=== PATIENT | male | born 1960 | race Caucasian/White ===

== ENCOUNTER → 2018-01-25 15:35 | Outpatient (CLI) | payer OTHER, SELFPAY ==
[2018-01-25 17:13] LABS: Anion Gap 8.9 mmol/L (3-11); BUN 21 mg/dL (7-18); CO2 29.1 mmol/L (21.0-32.0); CREATININE 1.05 mg/dL (0.70-1.30); Calcium 9.1 mg/dL (8.5-10.1); Chloride 104 mmol/L (98-107); Glucose 103 mg/dL (70-100); Potassium 3.8 mmol/L (3.5-5.1); Sodium 142 mmol/L (136-145)
== END ==
PROVIDERS: PCP Nurse Practitioner Family; Visit Provider Nurse Practitioner Family
DX: I10 Essential (primary) hypertension (principal)
CPT/HCPCS: 36415; 80048

== ENCOUNTER 2019-01-27 07:10 | Outpatient (CLI) | payer OTHER, SELFPAY ==
[2019-01-27 08:23] LABS: Anion Gap 8.7 mmol/L (3-11); BUN 18 mg/dL (7-18); CO2 29.3 mmol/L (21.0-32.0); CREATININE 1.09 mg/dL (0.70-1.30); Calculated LDL 104 mg/dL; Chloride 102 mmol/L (98-107); Cholesterol 178 mg/dL (50-200); Glucose 112 mg/dL (70-100); HDL Cholesterol 45 mg/dL (40-60); Potassium 4.3 mmol/L (3.5-5.1); Sodium 140 mmol/L (136-145); Triglyceride 146 mg/dL (30-150)
[2019-01-27 08:27] LABS: Hemoglobin A1C 5.8 % (4.5-6.2)
== END 2019-01-27 07:30 ==
PROVIDERS: PCP Nurse Practitioner Family; Visit Provider Nurse Practitioner Family
DX: I10 Essential (primary) hypertension (principal); E78.5 Hyperlipidemia, unspecified; R73.01 Impaired fasting glucose
CPT/HCPCS: 36415; 80048; 80061; 83721; 83036

== ENCOUNTER 2019-08-13 16:03 | Outpatient (CLI) | payer OTHER, SELFPAY ==
--- NOTE | 2019-08-13 15:32 | DI.RAD_ITS ---
EXAM: XR HEEL RT OS CALCIS CLINICAL HISTORY: Blunt trauma to right heel, pain rt heel/foot, M79.671,? FX TECHNIQUE: 2D digital imaging was performed. COMPARISON: No exams were available for comparison FINDINGS: BONES: No acute fracture is present. No bony destructive lesion is seen. JOINTS: No dislocation present. SOFT TISSUE: Normal. IMPRESSION: Unremarkable radiographs of the right calcaneus. DATA REPOSITORY: RADIATION DOSE DELIVERED:
== END 2019-08-13 16:23 ==
PROVIDERS: PCP Nurse Practitioner Family; Visit Provider Nurse Practitioner Family
DX: M79.671 Pain in right foot (principal); S90.31XA Contusion of right foot, initial encounter
CPT/HCPCS: 73650

== ENCOUNTER 2020-01-07 11:34 | Emergency (ER) | payer OTHER, SELFPAY ==
[2020-01-07] VITALS (19 sets, daily range): BP systolic 110–134; BP diastolic 66–79; PULSE 63–77; RESP 16–27; TEMP 36.6; O2SAT 94–98
[2020-01-07] MEDS: Normal Saline 1,000 ML 1000 ML IV (11:35)
[2020-01-07] MEDS: methylPREDNISolone SUCC 125 MG VIAL IVP (11:40)
[2020-01-07] MEDS: diphenhydrAMINE 50 MG/ML VIAL IVP (11:40)
[2020-01-07] MEDS: FAMOTIDINE 20 MG/50 ML BAG 200 MG IVPB (11:45)
[2020-01-07] MEDS: Normal Saline 1,000 ML 125 ML IV (12:26)
--- NOTE | 2020-01-07 12:48 | W.ED.GENAD ---
Discharge Plan Disposition Patient Disposition: HOME Condition: Stable Discharge Details Chief Complaint: Allergic Clinical Impression: Allergic reaction to bee sting Primary Care Provider: Cathy Larson ED Provider: Haja Bush Home Meds and New Rx's Prescriptions: New prednisone 20 mg tablet 60 mg PO DAILY 5 Days Qty: 15 RF: 0 epinephrine 0.3 mg/0.3 mL auto-injector 0.3 mg IM ONCE Qty: 1 RF: 0 Continued multivitamin 1 EACH tablet 1 ea PO DAILY RF: 0 aspirin [Ecotrin Low Strength] 81 MG tablet,delayed release (DR/EC) 81 mg PO DAILY RF: 0 Vitamin C 100 MG tablet 500 mg PO DAILY RF: 0 acetaminophen [Tylenol Extra Strength] 500 MG tablet 1,000 mg PO DAILY PRNRF: 0 sildenafil [Viagra] 50 MG tablet 50 mg PO DAILY PRNQty: 10 RF: 0 ranitidine HCl 150 mg tablet 150 mg PO BID Qty: 180 RF: 3 lisinopril 40 mg tablet 40 mg PO DAILY Qty: 90 RF: 3 hydrochlorothiazide 12.5 mg tablet 12.5 mg PO DAILY Qty: 90 RF: 3 propranolol 40 mg tablet 40 mg PO BID Qty: 180 RF: 3 Discharge Instructions Instructions: Insect Bite or Sting (ED), General Allergic Reaction (ED) Additional Instructions: At this time you have responded nicely to the medications provided in the ER. Prednisone as directed. [id number] Benadryl and Pepcid as directed for the next 5 days. I have given you a prescription for EpiPen and specific directions as to when to use the medication. As we discussed if you are required to use it I still recommend going to the nearest ER for evaluation. Please watch for new or worsening symptoms and return to the ER for any concerns. I would also recommend reaching out to your primary care provider later today or tomorrow for prompt outpatient reevaluation Discharge Data Discharge Date/Time-TO BE ENTERED AT DEPARTURE: 01/07/20 14:35 Medical Decision Making 59-year-old gentleman presenting at 30 minutes after a bee sting to his right ankle. He has body wide hives, itching, mild lip swelling and tingling. Also describes a chest tightness. I immediately saw the patient in room 1 and discussed the case with Dr. Anna. We will monitor him extremely closely but at this point there are no clear signs of angioedema or airway compromise. IV access established, given IV fluid, Benadryl, Pepcid, Solu-Medrol. Would like to attempt to avoid epinephrine if at all possible. Patient was observed in the ER for a total of over 3 hours. He was evaluated serially. The lip tingling and swelling sensation that he noted upon arrival had resolved completely. No longer having any chest tightness. The symptoms resolved within the first half an hour of his ER visit. Over the next 2-1/2 hours the hives resolve slowly. He was able to ambulate steadily without difficulty. He was able to use his phone without difficulty and tolerate p.o. belinda cindy. He is completely asymptomatic at this time. We discussed treatment plan disposition. Will provide a prescription burst dose of steroids and a prescription for an EpiPen with explicit instructions how and when to use the EpiPen. He will use [id number] Benadryl and Pepcid over the next 5 days as well. Patient will reach out to his primary care provider in the next 24 hours for prompt outpatient reevaluation. Upon discharge he is asymptomatic, neurologically intact. He has no additional questions or concerns and is comfortable discharge. During his evaluation and observation there were no signs of decompensation. Medical Records Medical records reviewed: Yes I reviewed the patient's medical records. HPI General Mode of arrival: ambulatory. Date/Time Provider Initiated Documentation: 01/07/20 11:37. Limitations to Documentation: no limitations. Information obtained by: patient. HPI Narrative: 59-year-old gentleman with history of hypertension, migraines, idiopathic peripheral neuropathy, GERD, presents to the ER having sustained a single bee sting to his lateral right ankle just prior to arrival while at work. He reports a body wide itchy rash and tingling in his lips. He did not take any medications prior to arrival and came directly to the ER. He has never had any reaction like this before to a bee sting. He denies any tongue swelling. No difficulty speaking, breathing, managing his own secretions. He does report that his skin feels tight where the rash is present and initially had a chest heaviness but denies any chest pain or shortness of breath. Related Data Home Medications Medication Instructions Recorded Confirmed Vitamin C 500 mg PO DAILY 09/27/12 01/07/20 aspirin [Ecotrin Low Strength] 81 mg PO DAILY tab-cap 09/27/12 01/07/20 multivitamin 1 ea PO DAILY 09/27/12 01/07/20 acetaminophen [Tylenol Extra 1,000 mg PO DAILY PRN tab-cap 11/01/16 01/07/20 Strength] sildenafil [Viagra] 50 mg PO DAILY PRN #10 tab-cap 08/03/17 01/07/20 ranitidine HCl 150 mg tablet 150 mg PO BID #180 tab-cap 11/14/18 01/07/20 lisinopril 40 mg tablet 40 mg PO DAILY #90 tab-cap 05/21/19 01/07/20 hydrochlorothiazide 12.5 mg tablet 12.5 mg PO DAILY #90 tab-cap 10/16/19 01/07/20 propranolol 40 mg tablet 40 mg PO BID #180 tab-cap 10/16/19 01/07/20 epinephrine 0.3 mg IM ONCE #1 each 01/07/20 prednisone 60 mg PO DAILY 5 Days #15 tab 01/07/20 Previous Rx's Medication Instructions Recorded ranitidine HCl 150 mg tablet 150 mg PO BID #180 tab-cap 11/14/18 lisinopril 40 mg tablet 40 mg PO DAILY #90 tab-cap 05/21/19 hydrochlorothiazide 12.5 mg tablet 12.5 mg PO DAILY #90 tab-cap 10/16/19 propranolol 40 mg tablet 40 mg PO BID #180 tab-cap 10/16/19 epinephrine 0.3 mg IM ONCE #1 each 01/07/20 prednisone 60 mg PO DAILY 5 Days #15 tab 01/07/20 Allergies Allergy/AdvReac Type Severity Reaction Status Date / Time bee venom protein (honey bee) Allergy Anaphylaxsi Unverified 01/07/20 11:42 s General Stated Complaint: Allergic MEREDITH: 2 Review of Systems Constitutional Constitutional: Denies headache(s) and Denies weakness Eyes Eyes: Denies itchy eyes ENT Ears, Nose, Mouth, and Throat: Denies headache(s), Reports lip swelling, Denies throat swelling and Denies tongue swelling Cardiovascular Cardiovascular: Denies chest pain and Denies dyspnea Respiratory Respiratory: Denies cough, Denies dyspnea and Denies wheezing Gastrointestinal Gastrointestinal: Denies abdominal pain, Denies nausea and Denies vomiting Musculoskeletal Musculoskeletal: Denies numbness and Reports tingling Integumentary/Breasts Skin/Breast: Reports rash Neurologic Neurologic: Denies headache(s), Denies numbness, Reports tingling and Denies weakness Allergic/Immunologic Allergic/Immunologic: Reports urticaria, Denies itchy eyes, Reports lip swelling, Denies throat swelling, Denies tongue swelling and Denies wheezing [facility] Medical History Asymptomatic varicose veins of unspecified lower extremity (Chronic 10/10/11) Benign neoplasm of colon, unspecified (Inactive 10/10/11) colonoscopy 08/22/13 tubular adenoma Gastroesophageal reflux disease with esophagitis (Chronic 12/22/15) 11/17/15 EGD showing moderate esophagitis with evidence of reflux including Schatzki ring, a small hiatal hernia, & moderate gastritis Hyperlipidemia (Chronic 10/10/11) 01/2019 labs: 10-year ASCVD risk = ~9.4% --> Idiopathic peripheral neuropathy (Chronic 11/20/12) neg w/u IFG (impaired fasting glucose) (Chronic) Male erectile dysfunction, unspecified (Chronic 08/03/17) Migraine (Chronic 10/10/11) Unspecified essential hypertension (Chronic 11/06/12) FRS 15% Surgical History Colonoscopy - IV Sedation (Resolved 12/22/16) Elbow surgery, right (Resolved ~2015) Repair of umbilical hernia (Resolved) Family History Mother Essential hypertension Hyperlipidemia Father , Ross's lung No problems noted. 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 Water heater temp set <120 deg: Yes Working smoke detector in home: Yes Fire extinguisher in home: Yes Carbon monox detector in home: Yes Firearms in home: Yes Firearms unloaded and locked: Yes Do you feel safe at home: Yes Do you feel safe in your relationship?: Yes Exam Const General: cooperative, healthy appearing, comfortable, no acute distress and anxious Orientation: alert and awake [facility] Head: normal to inspection, normocephalic and atraumatic General nose exam: external nose normal Face and sinus: normal facial exam Mouth: moist mucous membranes and lip abnormal (Minimal swelling) Throat: posterior oropharynx normal and uvula midline Eyes Conjunctivae: conjunctivae normal Sclera: sclerae normal Neck Neck: normal visual inspection, full ROM, no meningeal signs, trachea midline, supple and nontender Resp Effort & Inspection: normal respiratory effort and able to speak in complete sentences Auscultation: clear to auscultation bilaterally Cardio Rate: regular rate Rhythm: regular rhythm GI Palpation: soft and nontender Back/Spine/Pelvis Back: No back tenderness Skin Rashes: rashes noted hives diffuse full body Neuro General: patient alert, patient awake, patient oriented x3, moves all extremities and no focal motor deficits Cranial Nerves: CN's II-XI intact bilaterally Cognition: normal cognition Speech: speech normal Gait: normal gait Motor: muscle tone normal throughout and strength 5/5 throughout Sensory Exam: no sensory deficits noted Extrem General: full ROM, capillary refill normal, no pedal edema and no calf tenderness Left lower extremity: ankle (Lateral aspect with a puncture wound, no intact stinger) Psych Appearance: grossly normal Mental Status: mental status grossly normal Course Vital Signs Vital signs: Vital Signs Temperature 36.6 C 01/07/20 11:37 Pulse 71 01/07/20 11:37 Respiratory Rate 27 H 01/07/20 11:37 Blood Pressure 110/66 01/07/20 11:37 Pulse Oximetry 94 L 01/07/20 11:37 Temperature 36.6 C 01/07/20 11:37 Temperature Source Temporal Artery Scan 01/07/20 11:37 Pulse 68 01/07/20 12:16 Pulse 67 01/07/20 12:20 Respiratory Rate 24 01/07/20 12:20 Respiratory Effort 01/07/20 11:44 Respiratory Pattern Normal 01/07/20 11:44 Blood Pressure 134/79 07/29/20 12:16 Blood Pressure Mean 91 01/07/20 12:16 Blood Pressure Position Supine 01/07/20 11:37 Pulse Oximetry 98 01/07/20 12:20 Oxygen Delivery Method Room Air 01/07/20 11:37 Oxygen Flow Rate 0 01/07/20 11:37 Pain Level 3 01/07/20 11:37
--- NOTE | 2020-01-07 13:22 | NUR.NOTE ---
Nursing Note: pt dozing off , his hives are gone from his core and extrremeties.
== END 2020-01-07 14:35 | disposition home or self-care (01) ==
PROVIDERS: Emergency Provider Physician Assistant; PCP Nurse Practitioner Family
DX: T63.441A Toxic effect of venom of bees, accidental (unintentional), initial encounter (principal); L50.0 Allergic urticaria; L29.9 Pruritus, unspecified; R20.2 Paresthesia of skin; R07.89 Other chest pain; I10 Essential (primary) hypertension
CPT/HCPCS: 96361; 96365; 96375; 99284; J1200; J2930

== ENCOUNTER 2020-07-19 03:27 | Outpatient (CLI) | payer OTHER, SELFPAY ==
[2020-07-19 08:31] LABS: HCT 47.6 % (40.0-50.0); MCH 30.4 pg (27.0-33.0); MCHC 33.6 % (32.0-36.0); MCV 90.3 fL (80-95); MPV 8.9 fL (8.0-11.0); Platelet Count 335 10^3/uL (130-400); RBC 5.27 10^6/uL (4.36-5.78); RDW 12.4 % (11.8-14.1); RDW-SD 40.9 fL
[2020-07-19 09:13] LABS: Hemoglobin A1C 5.5 % (<5.7)
[2020-07-19 09:33] LABS: ALT 26 U/L (16-63); AST 17 U/L (15-37); Albumin 4.3 g/dL (3.4-5.0); Alkaline Phosphatase 66 U/L (46-116); Anion Gap 7.8 mmol/L (3-11); BUN 24 mg/dL (7-18); Bilirubin, Total 0.5 mg/dL (0.2-1.0); CO2 30.2 mmol/L (21.0-32.0); CREATININE 1.2 mg/dL (0.70-1.30); Calcium 9.2 mg/dL (8.5-10.1); Calculated LDL 106 mg/dL (<100); Chloride 100 mmol/L (98-107); Cholesterol 175 mg/dL (<200); Glucose 100 mg/dL (74-106); HDL Cholesterol 46 mg/dL (40-60); Potassium 4.7 mmol/L (3.5-5.1); Sodium 138 mmol/L (136-145); Total Protein 7.7 g/dL (6.4-8.2); Triglyceride 119 mg/dL (<150)
== END 2020-07-19 03:28 | disposition home or self-care (01) ==
LOC: LBO 03:27
PROVIDERS: PCP Nurse Practitioner Family; Visit Provider Nurse Practitioner Family
DX: I10 Essential (primary) hypertension (principal); E78.5 Hyperlipidemia, unspecified; R73.01 Impaired fasting glucose; K21.9 Gastro-esophageal reflux disease without esophagitis; Z51.81 Encounter for therapeutic drug level monitoring
CPT/HCPCS: 36415; 80053; 80061; 85027; 83036

== ENCOUNTER 2021-07-06 01:24 | Outpatient (CLI) | payer OTHER, SELFPAY ==
[2021-07-06 07:25] LABS: Abs Immature Grans 0.03 10^3/uL (0.0-0.06); Absolute Basophil Count 0.07 10^3/uL (0.0-0.2); Absolute Eosinophil Count 0.43 10^3/uL (0.0-0.7); Absolute Lymphocyte Count 2.19 10^3/uL (1.2-3.4); Absolute Monocyte Count 0.76 10^3/uL (0.1-0.8); Absolute Neutrophil Count 4.77 10^3/uL (1.2-6.7); Basophils % 0.8; Eosinophils % 5.2; HCT 47.4 % (40.0-50.0); HGB 15.6 g/dL (13.5-17.5); Immature Grans % 0.4; Lymphocytes % 26.5; MCH 30.2 pg (27.0-33.0); MCHC 32.9 % (32.0-36.0); MCV 91.9 fL (80-95); MPV 8.8 fL (8.0-11.0); Monocytes % 9.2; Neutrophils % 57.9; Nucleated RBC 0 %; Platelet Count 284 10^3/uL (130-400); RBC 5.16 10^6/uL (4.36-5.78); RDW 12.2 % (11.8-14.1); RDW-SD 41.9 fL; WBC 8.25 10^3/uL (4.4-10.8)
[2021-07-06 07:51] LABS: Hemoglobin A1C 5.5 % (<5.7)
[2021-07-06 08:53] LABS: Anion Gap 7.8 mmol/L (3-11); BUN 22 mg/dL (7-18); CO2 31.2 mmol/L (21.0-32.0); CREATININE 1.1 mg/dL (0.70-1.30); Calcium 8.9 mg/dL (8.5-10.1); Calculated LDL 117 mg/dL (<100); Chloride 101 mmol/L (98-107); Cholesterol 186 mg/dL (<200); Glucose 107 mg/dL (74-106); HDL Cholesterol 48 mg/dL (40-60); Potassium 4.6 mmol/L (3.5-5.1); Sodium 140 mmol/L (136-145); Triglyceride 106 mg/dL (<150)
== END 2021-07-06 01:25 | disposition home or self-care (01) ==
LOC: LBO 01:24
PROVIDERS: PCP Nurse Practitioner Family; Visit Provider Nurse Practitioner Family
DX: I10 Essential (primary) hypertension (principal); E78.5 Hyperlipidemia, unspecified; R73.01 Impaired fasting glucose; Z51.81 Encounter for therapeutic drug level monitoring
CPT/HCPCS: 36415; 80048; 80061; 83036; 85025

== ENCOUNTER 2021-08-12 04:01 | Outpatient (CLI) | payer OTHER, SELFPAY ==
[2021-08-12 22:00] LABS: CRP, High Sensitivity 0.47 mg/L (See Note)
== END 2021-08-12 04:02 | disposition home or self-care (01) ==
LOC: LBO 04:01
PROVIDERS: PCP Nurse Practitioner Family; Visit Provider Nurse Practitioner Family
DX: E78.5 Hyperlipidemia, unspecified (principal); Z91.89 Other specified personal risk factors, not elsewhere classified
CPT/HCPCS: 36415; 86141

== ENCOUNTER 2022-07-05 02:09 | Outpatient (CLI) | payer OTHER, SELFPAY ==
[2022-07-05 07:42] LABS: Hemoglobin A1C 5.7 % (<5.7)
[2022-07-05 07:45] LABS: Anion Gap 5.3 mmol/L (3-11); BUN 20 mg/dL (7-18); CO2 32.7 mmol/L (21.0-32.0); CREATININE 1.2 mg/dL (0.70-1.30); Calcium 9.2 mg/dL (8.5-10.1); Calculated LDL 112 mg/dL (<100); Chloride 102 mmol/L (98-107); Cholesterol 184 mg/dL (<200); Estimated GFR 68.38 (mL/min/1.73m2); Glucose 115 mg/dL (74-106); HDL Cholesterol 48 mg/dL (40-60); Potassium 3.8 mmol/L (3.5-5.1); Sodium 140 mmol/L (136-145); Triglyceride 122 mg/dL (<150)
== END 2022-07-05 02:10 | disposition home or self-care (01) ==
LOC: LBO 02:09
PROVIDERS: PCP Nurse Practitioner Family; Referring Provider Nurse Practitioner Adult Health; Visit Provider Nurse Practitioner Adult Health
DX: I10 Essential (primary) hypertension (principal); E78.5 Hyperlipidemia, unspecified; R73.01 Impaired fasting glucose
CPT/HCPCS: 36415; 80048; 80061; 83036

== ENCOUNTER 2022-08-10 16:00 | Emergency (ER) | payer OTHER, SELFPAY ==
--- NOTE | 2022-08-10 16:15 | DI.RAD_ITS ---
Exam(s) XR FOREARM LT EXAM: XR FOREARM LT CLINICAL HISTORY: broke glass while cleaning, laceration,r/o fb. TECHNIQUE: 2D digital imaging was performed of the left forearm. Two views were obtained. AP and l ateral views were obtained. COMPARISON: No exams were available for comparison FINDINGS: BONES: No acute fracture is present. No bony destructive lesion is seen. Visualized portion of elbow and wrist joints are unremarkable. SOFT TISSUE: There is a 3-4 mm triangular foreign body in the soft tissues in the anterior and medial distal forearm. IMPRESSION: 3-4 mm triangular foreign body in the soft tissues in the anterior medial distal forearm. DATA REPOSITORY: RADIATION DOSE DELIVERED:
[2022-08-10 16:22] VITALS: BP 140/81; PULSE 69; RESP 18; TEMP 36.5; O2SAT 96
--- NOTE | 2022-08-10 17:32 | ED.GENADUL_ITS ---
Discharge Plan Disposition Patient Disposition: Home Discharge Details Clinical Impression: Laceration with foreign body of left forearm, initial encounter, Finger laceration Primary Care Provider: Cathy Larson ED Provider: Cherie Estrada Home Meds and New Rx's Prescriptions: New cephalexin 500 mg capsule 500 mg PO Q6H 7 Days Qty: 28 0RF Continued epinephrine [EpiPen] 0.3 mg/0.3 mL auto-injector 0.3 mg IM ONCE Qty: 1 0RF Rx Instructions: Seek immediate medical attention following administration hydrochlorothiazide 12.5 mg tablet 12.5 mg PO DAILY Qty: 90 3RF lisinopril 40 mg tablet 40 mg PO DAILY Qty: 90 3RF propranolol 40 mg tablet 40 mg PO BID Qty: 180 3RF multivitamin 1 EACH tablet 1 ea PO DAILY aspirin [Ecotrin Low Strength] 81 MG tablet,delayed release (DR/EC) 81 mg PO Rx Instructions: Every other day Vitamin C 100 MG tablet 500 mg PO DAILY Rx Instructions: CHEWABLE sildenafil [Viagra] 50 MG tablet 50 mg PO DAILY PRNQty: 10 Rx Instructions: Take 50 mg once daily as needed 1 hour before sexual activity Discharge Instructions Instructions: Laceration (ED), Finger Laceration (ED) Additional Instructions: Keep wounds clean and dry Follow-up with orthopedics, this wound will likely heal nicely and the glass may or may not work itself out of the wound, it is perfectly safe for the foreign body to remain in the cot and likely not harm you There is a small risk of infection, placing you on antibiotics for several days Continue to wash it and keep it clean I also placed a little glue in your other wound to stop the bleeding, this Dermabond will come off on its own Keep all wounds clean and dry, monitor for signs of infection Refrain from submerging your arm in water Referrals: Royal Alvarez MD [ [facility] STAFF PHYSICIAN] - Discharge Data Discharge Date/Time-TO BE ENTERED AT DEPARTURE: 08/10/22 17:47 HPI General Date/Time Provider Initiated Documentation: 08/10/22 16:10 . HPI Narrative: This 62-year-old gentleman presents with injury to his left forearm and finger. He states that he was washing a cake carrier when it broke and he feels that there is a piece of glass in his arm. His tetanus is up-to-date and he denies any additional injuries. Related Data Home Medications Medication Instructions Recorded Confirmed ascorbic acid (vitamin C) 100 mg 500 mg PO DAILY 09/27/12 08/10/22 tablet (Vitamin C) aspirin 81 mg tablet,delayed 81 mg PO 09/27/12 07/12/22 release (Ecotrin Low Strength) multivitamin 1 ea PO DAILY 09/27/12 08/10/22 sildenafil 50 mg tablet (Viagra) 50 mg PO DAILY PRN #10 tab-caps 08/03/17 07/12/22 epinephrine 0.3 mg/0.3 mL 0.3 mg (0.3 mL) IM ONCE #1 ea 01/09/22 08/10/22 injection, auto-injector (EpiPen) hydrochlorothiazide 12.5 mg tablet 12.5 mg PO DAILY #90 tabs 07/12/22 08/10/22 lisinopril 40 mg tablet 40 mg PO DAILY #90 tab-caps 07/12/22 08/10/22 propranolol 40 mg tablet 40 mg PO BID #180 tab-caps 07/12/22 08/10/22 cephalexin 500 mg capsule 500 mg PO Q6H 7 days #28 caps 08/10/22 Previous Rx's Medication Instructions Recorded epinephrine 0.3 mg/0.3 mL 0.3 mg (0.3 mL) IM ONCE #1 ea 01/09/22 injection, auto-injector (EpiPen) hydrochlorothiazide 12.5 mg tablet 12.5 mg PO DAILY #90 tabs 07/12/22 lisinopril 40 mg tablet 40 mg PO DAILY #90 tab-caps 07/12/22 propranolol 40 mg tablet 40 mg PO BID #180 tab-caps 07/12/22 cephalexin 500 mg capsule 500 mg PO Q6H 7 days #28 caps 08/10/22 Allergies Allergy/AdvReac Type Severity Reaction Status Date / Time bee venom protein (honey bee) Allergy Anaphylaxsi Verified 08/10/22 16:26 s General Stated Complaint: Laceration MEREDITH: 4 PFSH All Active Problems (Updated 08/10/22 @ 17:35 by HERNÁN Lucas) Laceration with foreign body of left forearm, initial encounter (Acute) Finger laceration (Acute) IFG (impaired fasting glucose) (Chronic) Asymptomatic varicose veins of unspecified lower extremity (Chronic 10/10/11) Male erectile dysfunction, unspecified (Chronic 08/03/17) Gastroesophageal reflux disease with esophagitis (Chronic 12/22/15) 11/17/2015 EGD showing moderate esophagitis with evidence of reflux including Schatzki ring, a small hiatal hernia, & moderate gastritis Hyperlipidemia (Chronic 10/10/11) 06/2022 labs: 10-year ASCVD risk = 10.6%; 08/2021 HS-CRP = 0.47 (low risk) Idiopathic peripheral neuropathy (Chronic 11/20/12) neg w/u Migraine (Chronic 10/10/11) Unspecified essential hypertension (Chronic 11/06/12) FRS 15% Surgical History Colonoscopy - IV Sedation (12/22/16) Elbow surgery, right (~2015) Repair of umbilical hernia Family History Mother Essential hypertension Hyperlipidemia Father , Ross's lung Lung disease Ross's lung Brother , Colon CA Neoplasm Colon CA Paternal Grandmother Diabetes Social History (Updated 07/12/22 @ 09:30 by Cathy Larson NP) Smoking/Tobacco Use Status: Never Smoking risk assessment performed?: Yes Alcohol Intake: current Alcohol Intake frequency: holidays/special occasions only Drug use: Never Substance use type: does not use Adopted: No Caregiver/Support person: No Foster care: No Household members: spouse and children Housing: house Number of Children: 3 number of grandchildren: 2 Communication Needs: None Education Level: high school Do you need help understanding health information?: Never current occupation: Retired 01/2022 (previously [employer]) Pets and animals: Yes (2 Dogs) Pets and animals: dog(s) Sexually active: Yes Do you think of yourself as: straight/heterosexual Current gender identity: male What is your relationship status?: How often do you talk on the phone with friends or family?: three or more times per week How often do you get together with friends or relatives?: three or more times per week Do you belong to any clubs or organized social groups?: yes Panel score (0-1 are the most socially isolated patients): 3 What type of physical activity do you participate in: none, walking and regular exercise Duration: 45-60 minutes/day Frequency: 5-6 times per week Colleen/Pentecostal: Taoist Special colleen needs: No Seatbelt use: always Helmet use: Yes 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 Water heater temp set <120 deg: Yes Working smoke detector in home: Yes Fire extinguisher in home: Yes Carbon monox detector in home: Yes Firearms in home: Yes Firearms unloaded and locked: Yes Do you feel safe at home: Yes Do you feel safe in your relationship?: Yes Exam Narrative Exam Narrative: Patient has a laceration noted to the distal third forearm on the ulnar aspect and small laceration to his digit on the left Wounds were cleansed, the forearm wound has a foreign body per radiology interpretation and my review I did attempt to remove the foreign body both with ultrasound and and was unsuccessful Wound was cleansed and patient referred to orthopedics, he is also made aware that likely this will heal without evidence of infection and he can talk to orthopedics about whether or not intervention is necessary He will be placed on antibiotics Wounds were dressed and patient will be referred to orthopedics in the outpatient setting He remains neurovascularly intact throughout this encounter Course Vital Signs Vital signs: Vital Signs Temperature 36.5 C 08/10/22 16:22 Pulse 69 08/10/22 16:22 Respiratory Rate 18 08/10/22 16:22 Blood Pressure 140/81 08/10/22 16:22 Pulse Oximetry 96 08/10/22 16:22 Temperature 36.5 C 08/10/22 16:22 Pulse 69 08/10/22 16:22 Respiratory Rate 18 08/10/22 16:22 Respiratory Effort Normal 08/10/22 16:28 Blood Pressure 140/81 08/10/22 16:22 Blood Pressure Position Sitting 08/10/22 16:22 Pulse Oximetry 96 08/10/22 16:22 Oxygen Delivery Method Room Air 08/10/22 16:22 Oxygen Flow Rate 0 08/10/22 16:22 Pain Level 2 08/10/22 16:22
== END 2022-08-10 17:47 | disposition home or self-care (01) ==
PROVIDERS: Emergency Provider Physician Assistant; PCP Nurse Practitioner Family
DX: S51.822A Laceration with foreign body of left forearm, initial encounter (principal); W25.XXXA Contact with sharp glass, initial encounter; W45.8XXA Other foreign body or object entering through skin, initial encounter; S61.218A Laceration without foreign body of other finger without damage to nail, initial encounter
CPT/HCPCS: 99283; 73090

== ENCOUNTER 2023-07-16 05:16 | Outpatient (CLI) | payer OTHER, SELFPAY ==
[2023-07-16 07:13] LABS: HCT 47.3 % (40.0-50.0); HGB 16.1 g/dL (13.5-17.5)
[2023-07-16 07:34] LABS: Hemoglobin A1C 5.6 % (<5.7)
[2023-07-16 07:42] LABS: ALT 33 U/L (16-63); AST 21 U/L (15-37); Albumin 4.2 g/dL (3.4-5.0); Alkaline Phosphatase 62 U/L (46-116); Anion Gap 7.8 mmol/L (3-11); BUN 21 mg/dL (7-18); Bilirubin, Total 0.8 mg/dL (0.2-1.0); CO2 32.2 mmol/L (21.0-32.0); CREATININE 1.2 mg/dL (0.70-1.30); Calcium 9.6 mg/dL (8.5-10.1); Calculated LDL 115 mg/dL (<100); Chloride 101 mmol/L (98-107); Cholesterol 195 mg/dL (<200); Estimated GFR 67.95 (mL/min/1.73m2); Glucose 121 mg/dL (74-106); HDL Cholesterol 50 mg/dL (40-60); Potassium 4.2 mmol/L (3.5-5.1); Sodium 141 mmol/L (136-145); Total Protein 8.1 g/dL (6.4-8.2); Triglyceride 151 mg/dL (<150)
== END 2023-07-16 05:17 | disposition home or self-care (01) ==
LOC: LBO 05:17
PROVIDERS: Absent Provider Nurse Practitioner Family; PCP Nurse Practitioner Family; Visit Provider Nurse Practitioner Family
DX: I10 Essential (primary) hypertension (principal); Z51.81 Encounter for therapeutic drug level monitoring; E78.5 Hyperlipidemia, unspecified; R73.01 Impaired fasting glucose
CPT/HCPCS: 36415; 80053; 80061; 83036; 85014; 85018

== ENCOUNTER 2024-07-28 02:03 | Outpatient (CLI) | payer OTHER, SELFPAY ==
[2024-07-28 07:55] LABS: Anion Gap 7.6 mmol/L (3-11); BUN 23 mg/dL (7-18); CO2 32.4 mmol/L (21.0-32.0); CREATININE 1.2 mg/dL (0.70-1.30); Calcium 9.4 mg/dL (8.5-10.1); Calculated LDL 110 mg/dL (<100); Chloride 102 mmol/L (98-107); Cholesterol 190 mg/dL (<200); Estimated GFR 67.53 (mL/min/1.73m2); Glucose 112 mg/dL (74-106); HDL Cholesterol 54 mg/dL (40-60); Potassium 4.3 mmol/L (3.5-5.1); Sodium 142 mmol/L (136-145); Triglyceride 134 mg/dL (<150)
[2024-07-28 17:21] LABS: PSA, Screening 0.5 ng/mL (<=4.5)
== END 2024-07-28 02:04 | disposition home or self-care (01) ==
PROVIDERS: PCP Nurse Practitioner Adult Health; Referring Provider Nurse Practitioner Adult Health; Visit Provider Nurse Practitioner Adult Health
DX: Z12.5 Encounter for screening for malignant neoplasm of prostate (principal); G43.909 Migraine, unspecified, not intractable, without status migrainosus; E78.5 Hyperlipidemia, unspecified; I10 Essential (primary) hypertension; Z13.1 Encounter for screening for diabetes mellitus
CPT/HCPCS: 36415; 80048; 80061; 84153

== ENCOUNTER 2025-05-11 13:55 | Outpatient (CLI) | payer MEDICARE, SELFPAY ==
--- NOTE | 2025-05-11 13:45 | RT.EKG_ITS ---
APPROVED REPORT Exam: Resting ECG Reason for Exam: screening--covered under welcome to medicare Patient Location: O HR:63 bpm ECG Measurements Heart Rate 63 AXIS AZ 233 P 46 QRSd 95 QRS 44 QT 400 T 46 QTc 410 Conclusion Sinus rhythm...normal P axis, V-rate 50- 99 Prolonged AZ interval...AZ >220, V-rate 50- 90
== END 2025-05-11 13:56 | disposition home or self-care (01) ==
LOC: DI.KIM 13:56
PROVIDERS: PCP Nurse Practitioner Adult Health; Visit Provider Nurse Practitioner Adult Health
DX: I44.0 Atrioventricular block, first degree (principal); Z00.00 Encounter for general adult medical examination without abnormal findings
CPT/HCPCS: 93010

== ENCOUNTER → 2025-06-10 07:52 | Outpatient (CLI) | payer MEDICARE, SELFPAY ==
--- NOTE | 2025-06-10 05:45 | DI.US_ITS ---
Exam(s) US AAA SCREENING EXAM: US AAA SCREENING CLINICAL HISTORY: screening for AAA,hyperlipidemia,preventative screening,z00.00,e78.5, COMPARISON: No exams were available for comparison FINDINGS: Abdominal Aorta: Proximal: 2.5 cm Mid: 1.9 cm Distal: 1.7 cm Iliacs: Right: 1.1 cm Left: 1 cm IMPRESSION: No evidence of abdominal aortic aneurysm. DATA REPOSITORY:
== END ==
LOC: DI 07:52
PROVIDERS: PCP Nurse Practitioner Adult Health; Visit Provider Nurse Practitioner Adult Health
DX: E78.5 Hyperlipidemia, unspecified (principal); I10 Essential (primary) hypertension
CPT/HCPCS: 76706